=== PATIENT | female | born 1955 ===

== ENCOUNTER 2017-07-24 16:07 | Emergency (ER) | payer MEDICAID, OTHER ==
[2017-07-24 16:08] VITALS: BMI 38.1
[2017-07-24 16:18] VITALS: PULSE 74; O2SAT 98
--- NOTE | 2017-07-24 16:56 | ED PDOC ---
HPI: Abdomen Time Seen by Provider: 07/24/17 16:23 Chief Complaint (Nursing): Abnormal Skin Integrity Chief Complaint (Provider): Abnormal Skin Integrity History Per: Patient History/Exam Limitations: no limitations Current Symptoms Are (Timing): Still Present Additional Complaint(s): Patient reports lump to right breast. States that she had an mamogram recently performed in March. Since then she hasn't followed up. Otherwise denies any abnormal skin changes on breast, any nipple discharge, pain and swelling. Patient also complains of constant non-radiating left upper quadrant pain x 3 weeks, associated with nausea and vomiting yesterday. Reports that pain is worse with eating. Otherwise: (-) diarrhea, (-) fever, (-)chills, (-) chest pain , (-)back pain, (-) shortness of breath, (-) melena, (-) hematochezia. Has history of fatty liver disease, endoscopy (Apr 2016) and colonoscopy (Apr 2016) Past Medical History Reviewed: Historical Data, Nursing Documentation, Vital Signs Vital Signs: Last Vital Signs Temp Pulse 74 07/24/17 16:15 Resp 20 07/24/17 16:15 BP 132/73 07/24/17 16:15 Pulse Ox 98 07/24/17 18:04 - Medical History PMH: Arthritis, Cardia Arrhythmia, Diabetes, Gastritis, Gall Bladder Disease, Hypercholesterolemia Denies: Chronic Kidney Disease - Surgical History Surgical History: Cholecystectomy, Endoscopy Other surgeries: BILATERAL FOOT SX - Family History Family History: States: Unknown Family Hx - Social History Current smoker - smoking cessation education provided: No (Never smoked) Alcohol: None Drugs: Denies - Immunization History Hx Tetanus Toxoid Vaccination: No Hx Influenza Vaccination: No Hx Pneumococcal Vaccination: No - Home Medications Home Medications: Ambulatory Orders Medication Instructions Recorded MetFORMIN [glucOPHAGE] 1,000 mg PO BID 04/21/16 SITagliptin [Januvia] 100 mg PO DAILY 04/21/16 Esomeprazole Magnesium [Nexium] 40 mg PO DAILY #30 capsule. 07/24/17 - Allergies Allergies/Adverse Reactions: Allergies Allergy/AdvReac Type Severity Reaction Status Date / Time No Known Allergies Allergy Verified 10/07/15 13:00 Review of Systems ROS Statement: Except As Marked, All Systems Reviewed And Found Negative (As per HPI, otherwise negative) Constitutional: Positive for: Other (lump in right breast). Negative for: Fever , Chills Cardiovascular: Negative for: Chest Pain Respiratory: Negative for: Shortness of Breath Gastrointestinal: Positive for: Abdominal Pain (Left lower quadrant pain associated iwth nausea and vomiting). Negative for: Diarrhea Musculoskeletal: Negative for: Back Pain Physical Exam - Reviewed Nursing Documentation Reviewed: Yes Vital Signs Reviewed: Yes - Physical Exam Comments: GENERAL APPEARANCE: Patient is awake, alert, oriented x 3, in no acute distress SKIN: Warm, dry; (-) cyanosis. EYES: (-) conjunctival pallor, (-) scleral icterus. ENMT: Mucous membranes moist. NECK: (-) tenderness, (-) stiffness, (-) lymphadenopathy. BREAST: (-) deformities, (-) skin changes, (-) peau d'orange, (-) nipple discharge. CHIEF HUMAN RESOURCES OFFICER was present during the entire exam. RESPIRATORY: (-) rales, (-) rhonchi, (-) wheezes; breath sounds equal bilaterally. HEART AND CARDIOVASCULAR: (-) irregularity; (-) murmur, (-) gallop. ABDOMEN AND GI: (-) distention. Bowel sounds active; mild left upper quadrant tenderness to deep palpation, (-) guarding, (-) rebound, (-) palpable masses, (- ) CVA tenderness. EXTREMITIES: (-) deformity, (-) edema, (+) distal pulses, (-) axillary lymphadenopathy NEURO AND PSYCH: Mental status as above; (-) focal findings. - Laboratory Results Result Diagrams: 07/24/17 17:05 07/24/17 17:05 - ECG O2 Sat by Pulse Oximetry: 98 (RA) Pulse Ox Interpretation: Normal Medical Decision Making Medical Decision Making: Time: 16:41 Initial Impression: mass to right breat, abdominal pain likely gastritis Plan: CMP Lipase CBC w/ differential Pepcid 20mg IVP Sodium chloride 1L IV Zofran 4mg IVP Urine culture IV insertion Finger stick Previous medical records reviewed, patient had an endoscopy and colonoscopy done in April 2016 results are as follows : 04/21/[address] Mahajan: Congested mucosa in the distal descending colon. Biopsies. Moderate colonic spasm. Nonbleeding internal hemorrhoids 04/19/[address] Mahajan : Nonbleeding grade 2 esophageal varices. Nonbleeding grade 3 esophageal varices. Medium-sized hiatal hernia Acute gastritis. Biopsies. Normal exam and duodenum. Labs reviewed, patient noted to have a normal white blood cell count, glucose is 451, LFTs are mildly elevated, T bili and lipase within normal limits. 1 L normal saline bolus ordered. On reevaluation, patient is observed ambulating in the emergency room in no acute distress. Patient reports improvement of her pain. Patient admits that she is on Nexium for her gastritis, however she ran out of her Nexium 2 months ago. She also adds that the reason why her sugar is high today because after taking the metformin she vomited the medicine up this morning. Otherwise she states that she checks her sugar regularly, and her fasting glucose fluctuates between 140-200. On exam, abdomen remains soft, no tenderness, no guarding, no rebound. Repeat fingerstick 301. Based on history, exam and diagnostic results plan will be for outpatient follow -up. Patient advised to follow up with her CARE MANAGEMENT ASSOCIATE and PMD regarding known right breast mass, patient encouraged to continue to check her glucose daily and adhere to a diabetic diet. Advised to follow up with primary care physician and her Gi doctor in 1-2 days without fail. Advised to take medication as prescribed - nexium. Return to the emergency room at any time for any new or worsening symptoms. Patient states she fully agrees with and understands discharge instructions. States that she agrees with the plan and disposition. Verbalized and repeated discharge instructions and plan. I have given the patient opportunity to ask any additional questions. Scribe Attestation: Documented by Walter Thornton acting as a scribe for PA. MD Aly Cheatham PA-C Attestation: All medical record entries made by the Scribe were at my direction and personally dictated by me. I have reviewed the chart and agree that the record accurately reflects my personal performance of the history, physical exam, medical decision making, and the department course for this patient. I have also personally directed, reviewed, and agree with the discharge instructions and disposition. Disposition - Clinical Impression Clinical Impression: LFTs abnormal, Abdominal pain, Gastritis, Hyperglycemia - Patient ED Disposition Is Patient to be Admitted: No Counseled Patient/Family Regarding: Studies Performed, Diagnosis, Need For Followup, Rx Given - Disposition Disposition: Routine/Home Disposition Time: 19:00 Condition: IMPROVED Additional Instructions: Thank you for letting us take care of you today. You were treated for abdominal pain, likely gastritis, hyperglycemia, elevated LFTs. The emergency medical care you received today was directed at your acute symptoms. If you were prescribed any medication, please fill it and take as directed. It may take several days for your symptoms to resolve. Return to the Emergency Department if your symptoms worsen, do not improve, or if you have any other problems. Please contact your primary care and your GI doctor in 2 days for re-evaluation and follow up. Bring any paperwork you were given at discharge with you along with any medications you are taking to your follow up visit. Our treatment cannot replace ongoing medical care by a primary care provider (PCP) outside of the emergency department. Thank you for allowing the [facility] team to be part of your care today. Prescriptions: Esomeprazole Magnesium [Nexium] 40 mg PO DAILY #30 capsule. Instructions: Gastritis, Hyperglycemia, Adult Forms: [employer] (Ukrainian) Print Language: AFGHAN
[2017-07-24 17:17] LABS: URINE BILIRUBIN NEGATIVE (NEGATIVE); URINE BLOOD NEGATIVE (NEGATIVE); URINE CLARITY CLEAR (Clear); URINE COLOR YELLOW (YELLOW); URINE GLUCOSE (UA) >=500 mg/dL (Normal); URINE LEUKOCYTE ESTERASE NEG Leu/uL (Negative); URINE PROTEIN NEGATIVE (NEGATIVE); URINE UROBILINOGEN 0.2-1.0 mg/dL (0.2-1.0)
[2017-07-24 17:41] LABS: ALB/GLOB RATIO 0.9 (1.0-2.1); ALBUMIN 4.3 g/dL (3.5-5.0); ALT/SGPT 164 U/L (9-52); AST/SGOT 162 U/L (14-36); BLOOD UREA NITROGEN 14 mg/dl (7-17); CALCIUM 9.4 mg/dL (8.4-10.2); GFR AFRICAN-AMERICAN > 60; GFR NON-AFRICAN AMERICAN > 60; LIPASE 126 U/L (23-300)
[2017-07-24] MEDS ORDERED: Sodium Chloride 0.9% 1,000 ML IV STA (17:50)
[2017-07-24 17:51] LABS: BASO % 0.9 % (0.0-2.0); EOS # 0.1 K/uL (0.0-0.7); EOS % 2.1 % (0.0-4.0); HEMOGLOBIN 15.9 g/dL (12.0-16.0); LYMPH # 1.4 K/uL (1.0-4.3); LYMPH % 34.8 % (20.0-40.0); MEAN CELL VOLUME 89.9 fl (81.0-99.0); MEAN CORPUSCULAR HEMOGLOBIN 31.3 pg (27.0-31.0); MEAN CORPUSCULAR HGB CONC 34.9 g/dL (33.0-37.0); MEAN PLATELET VOLUME 8.9 fl (7.2-11.7); MONO # 0.3 K/uL (0.0-0.8); MONO % 7.6 % (0.0-10.0); NEUT # 2.3 K/uL (1.8-7.0); NEUT % 54.6 % (50.0-75.0); NRBC % 0.1 % (0.0-0.0); RBC 5.08 Mil/uL (3.80-5.20); RED CELL DISTRIBUTION WIDTH 14.6 % (11.5-14.5); WHITE BLOOD COUNT 4.1 K/uL (4.8-10.8)
[2017-07-24 19:13] VITALS: BP 119/65; RESP 18
== END 2017-07-24 19:31 | disposition home or self-care (01) ==
LOC: H.ER 16:07
DX: N63.20 Unspecified lump in the left breast, unspecified quadrant (principal); R79.89 Other specified abnormal findings of blood chemistry; R10.9 Unspecified abdominal pain; K29.70 Gastritis, unspecified, without bleeding; E11.65 Type 2 diabetes mellitus with hyperglycemia; E78.00 Pure hypercholesterolemia, unspecified; Z79.84 Long term (current) use of oral hypoglycemic drugs
CPT/HCPCS: 80053; 81003; 82948; 83690; 85025; 87086; 96361; 96374; 96375; 99285; J2405; J7040